=== PATIENT | female | born 1990 | race Caucasian/White ===

== ENCOUNTER 2016-05-30 08:33 | Emergency (ER) | payer MEDICAID ==
[~2016-05-30] VITALS: Ht 157.5 cm; Wt 52.2 kg
[2016-05-30 08:40] VITALS: BP 133/74; PULSE 89; RESP 16; TEMP 97.8; O2SAT 99
--- NOTE | 2016-05-30 08:46 | NUR ---
AMBULATED TO BED 5
--- NOTE | 2016-05-30 09:00 | NUR ---
ER Dr. Godinez at bedside examining patient.
[2016-05-30] MEDS ORDERED: NACL 0.9% 1,000 ML IV ONE (09:15)
[2016-05-30] MEDS ORDERED: PROCHLORPERAZINE EDISYLATE 10 MG/2 ML VIAL IVP ONE (09:15)
[2016-05-30] MEDS ORDERED: DEXAMETHASONE SOD PHOSPHATE 10 MG/ML VIAL IVP ONE (09:15)
[2016-05-30] MEDS ORDERED: KETOROLAC TROMETHAMINE 30 MG VIAL IVP ONE (09:15)
--- NOTE | 2016-05-30 09:38 | NUR ---
MEDICATED ORDERED PT STATES SHE FEELS BETTER AT THIS TIME
--- NOTE | 2016-05-30 10:35 | NUR ---
Patient given written and verbal discharge instructions and verbalizes understanding. ER MD discussed with patient the results and treatment provided. Patient in stable condition. ID arm band removed. IV catheter removed intact and dressing applied, no active bleeding. No Rx given. Patient educated on pain management and to follow up with PMD. Pain Scale 0/10. Opportunity for questions provided and answered.
[2016-05-30 10:36] VITALS: BP 110/68; PULSE 71; RESP 13; TEMP 96.8; O2SAT 99
== END 2016-05-30 10:35 | disposition home or self-care (01) ==
LOC: SED 08:33
DX: G43.819 Other migraine, intractable, without status migrainosus (principal); H53.149 Visual discomfort, unspecified; R03.0 Elevated blood-pressure reading, without diagnosis of hypertension
CPT/HCPCS: 81025; 96361; 96374; 96375; 99284; J0780; J1100; J1885; J7030

== ENCOUNTER 2017-11-03 18:58 | Emergency (ER) | payer MEDICAID ==
[~2017-11-03] VITALS: Ht 157.5 cm; Wt 55.3 kg
[2017-11-03 19:01] VITALS: BP_SYST 105
--- NOTE | 2017-11-03 19:10 | NUR ---
Patient triaged and placed in waiting room. VSS and patient appears in no acute distress at this time. Accompanied by self, awaiting available bed, and MD notified of need for MSE.
--- NOTE | 2017-11-03 19:45 | NUR ---
Patient to ER bed 07 to gown for evaluation. Side rails up.
--- NOTE | 2017-11-03 19:48 | NUR ---
ER Dr. Borges at bedside examining patient.
--- NOTE | 2017-11-03 20:00 | NUR ---
Pt, A1 AAOx4 presents to the ED c/o abdominal cramping accompanying vaginal spotting since last night. Pt denies trauma/V/D/Chills. No other injuries/complaints per pt/noted. Will continue to monitor.
[2017-11-03] MEDS ORDERED: ONDANSETRON HCL 4 MG/2 ML VIAL IVP ONE (20:15)
[2017-11-03] MEDS ORDERED: NACL 0.9% 1,000 ML IV ONE (20:15)
[2017-11-03 20:21] LABS: BLOOD, URINE NEGATIVE (NEGATIVE); CLARITY/URINE SL CLOUDY (CLEAR); COLOR,URINE YELLOW (YELLOW); GLUCOSE,URINE NEGATIVE (NEGATIVE); KETONES,URINE 3+ (NEGATIVE); LEUKOCYTE ESTERASE ,URINE NEGATIVE (NEGATIVE); NITRITE, URINE POSITIVE (NEGATIVE); PROTEIN URINE 1+ (NEGATIVE)
[2017-11-03 20:27] LABS: BASOPHILS # (AUTO) 0.1 K/uL (0.0-0.2); BASOPHILS % (AUTO) 0.8 % (0.0-2.0); EOSINOPHILS % (AUTO) 0.5 % (0.0-4.0); HEMATOCRIT 38.9 % (36-48); HEMOGLOBIN 13.1 g/dL (12.0-16.0); LYMPHOCYTES # (AUTO) 1.2 K/uL (1.0-5.5); LYMPHOCYTES % (AUTO) 13.4 % (20.5-51.5); MEAN CORPUSCULAR HEMOGLOBIN 32 pg (27-31); MEAN CORPUSCULAR HGB CONC 34 % (32-36); MEAN CORPUSCULAR VOLUME 96 fL (79.0-98.0); MONOCYTES # (AUTO) 0.4 K/uL (0.0-1.0); MONOCYTES % (AUTO) 4.1 % (1.7-9.3); NEUTROPHILS # (AUTO) 7.2 K/uL (1.8-7.7); NEUTROPHILS % (AUTO) 81.2 % (40.0-70.0); PLATELET COUNT (AUTO) 303 K/uL (130-430); RED BLOOD CELL COUNT(AUTO) 4.06 MIL/uL (4.2-6.2); RED CELL DISTRIBUTION WIDTH 11.6 % (9.0-15.0); WHITE BLOOD COUNT (AUTO) 8.9 K/uL (4.8-10.8)
[2017-11-03 20:42] LABS: BILIRUBIN,URINE NEGATIVE (NEGATIVE)
[2017-11-03 20:43] LABS: BACTERIA,URINE MODERATE /HPF (None Seen); RBC,URINE NONE SEEN /HPF (0-3)
[2017-11-03 20:44] LABS: MUCUS,URINE 1+ /LPF (None Seen)
--- NOTE | 2017-11-03 21:00 | NUR ---
# 22 gauge angiocath placed to L AC. Use of asceptic technique. Opsite placed over site. Blood return noted. Flushed with 10 cc of normal saline. No evidence of infiltration noted. Patient tolerated well.
[2017-11-03 21:02] LABS: CALCIUM 9.1 mg/dL (8.4-11.0); CREATININE 0.6 mg/dL (0.55-1.30); POTASSIUM 3.7 mmol/L (3.5-5.1)
[2017-11-03 21:06] LABS: PROTHROMBIN TIME 10.4 SECS (9.5-12.5)
--- NOTE | 2017-11-03 21:10 | NUR ---
Fluids and zofran administered. Pt toleratred well. No adverse reactions noted.
[2017-11-03 21:27] LABS: ALBUMIN 3.7 g/dL (3.4-4.8); TOTAL BILIRUBIN 0.9 mg/dL (0.0-1.0)
--- NOTE | 2017-11-03 22:37 | NUR ---
Pelvic exam performed by Dr. Borges with Ca LEONARDO at bedside for entire examination. Patient tolerated procedure well. Patient assisted to position of comfort after examination.
--- NOTE | 2017-11-03 23:22 | NUR ---
Patient given written and verbal discharge instructions and verbalizes understanding. ER MD Borges discussed with patient the results and treatment provided. Patient in stable condition. ID arm band removed. IV catheter removed intact and dressing applied, no active bleeding. Rx of Macrobid, Tylenol, Zofran given. Patient educated on pain management and to follow up with PMD. Pain Scale 0. Opportunity for questions provided and answered. Medication side effect fact sheet provided.
[2017-11-03 23:30] VITALS: BP_SYST 110
== END 2017-11-03 23:28 | disposition home or self-care (01) ==
LOC: SED 18:58
DX: O20.0 Threatened abortion (principal); O23.41 Unspecified infection of urinary tract in pregnancy, first trimester; R06.02 Shortness of breath; Z3A.01 Less than 8 weeks gestation of pregnancy
CPT/HCPCS: 36415; 76805; 80053; 81000; 81025; 83690; 84702; 85025; 85610; 85730; 86901; 87086; 87186; 96374; 99285; J2405; J7030; 96361

== ENCOUNTER 2018-06-21 23:07 | Emergency (ER) | payer MEDICAID ==
[~2018-06-21] VITALS: Ht 157.5 cm; Wt 59.0 kg
--- NOTE | 2018-06-21 23:07 | NUR ---
2308 - Patient to ER bed ch1 for evaluation. Side rails up.
--- NOTE | 2018-06-21 23:10 | NUR ---
2310 - ER at bedside examining patient.
[2018-06-21 23:20] VITALS: BP_SYST 157
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
== END 2018-06-21 23:20 ==
LOC: SED 23:07
DX: F10.129 Alcohol abuse with intoxication, unspecified (principal)
CPT/HCPCS: 99283

== ENCOUNTER 2019-05-06 19:58 | Emergency (ER) | payer MEDICAID ==
[~2019-05-06] VITALS: Ht 157.5 cm; Wt 59.0 kg
[2019-05-06 20:02] VITALS: BP_SYST 135
--- NOTE | 2019-05-06 20:06 | NUR ---
Patient to ER H1 for evaluation. Side rails up.
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
--- NOTE | 2019-05-06 21:00 | NUR ---
ER Dr. Penny at bedside examining patient.
[2019-05-06] MEDS ORDERED: KETOROLAC TROMETHAMINE 60 MG/2 ML VIAL IM ONE (21:15)
[2019-05-06] MEDS ORDERED: DIPH-TET-PERTUS Vaccine 0.5 ML VIAL (ADACEL) I.M. ONE (21:15)
--- NOTE | 2019-05-06 21:45 | NUR ---
Patient returned from CT in stable condition.
--- NOTE | 2019-05-06 22:55 | NUR ---
Patient given written and verbal discharge instructions and verbalizes understanding. ER MD Penny discussed with patient the results and treatment provided. Patient in stable condition. ID arm band removed. No Rx given. Patient educated on pain management and to follow up with PMD. Pain Scale 0. Opportunity for questions provided and answered. Medication side effect fact sheet provided.
[2019-05-06 22:56] VITALS: BP_SYST 141
== END 2019-05-06 22:55 ==
LOC: SED 19:58
DX: S00.83XA Contusion of other part of head, initial encounter (principal); S40.011A Contusion of right shoulder, initial encounter; S80.02XA Contusion of left knee, initial encounter; Y04.0XXA Assault by unarmed brawl or fight, initial encounter; Y93.89 Activity, other specified; Y92.89 Other specified places as the place of occurrence of the external cause; Y99.8 Other external cause status
CPT/HCPCS: 70450; 73564; 81025; 90471; 90715; 96372; 99284; J1885